=== PATIENT | female | born 1965 | race Caucasian/White ===

== ENCOUNTER → 2024-08-30 08:00 | Outpatient (REF) | payer OTHER, SELFPAY | LOC: HWRAD 08:00 | PROVIDERS: ATTENDING PHYSICIAN Internal Medicine | DX: R74.01 Elevation of levels of liver transaminase levels (principal) | CPT/HCPCS: 76700 ==

== ENCOUNTER → 2024-08-30 08:03 | Outpatient (REF) | payer SELFPAY | LOC: HWRAD 08:03 | PROVIDERS: ATTENDING PHYSICIAN Internal Medicine | DX: E78.2 Mixed hyperlipidemia (principal) | CPT/HCPCS: 75571 ==